=== PATIENT | male | born 1960 | race Caucasian/White ===

== ENCOUNTER 2018-07-06 08:41 | Emergency (ER) | payer OTHER, SELFPAY ==
[2018-07-06 08:49] VITALS: BP 166/100; PULSE 105; RESP 18; TEMP 36.8; O2SAT 99
--- NOTE | 2018-07-06 09:08 | ED_ITS ---
HPI - Wound/Laceration General Chief Complaint: Wound/Laceration Stated Complaint: r knee laceration Time Seen by Provider: 07/06/18 08:53 Source: patient Mode of arrival: ambulatory Limitations: no limitations History of Present Illness HPI narrative: patient is a 57-year-old male who presents with right knee laceration. He was at work when a piece of sheet metal slid off and grazed his knee. He was wearing jeans and cover also is he had quite a bit of blood loss according to witnesses. He does have a 1 cm laceration on his knee. He has no numbness or tingling. He is weight-bearing. He is able to flex and extend without any difficulty. Onset (ago): minute(s) Extremity Location: Right: knee ( 1 cm) Place: work Patient tetanus UTD: Yes Context: accidental Associated symptoms: none Review of Systems Review of Systems GENERAL: Denies chills,fever HEENT: Denies throat pain RESPIRATORY: Denies dyspnea, cough, wheezing CARDIOVASCULAR: Denies chest pain, palpitations GASTROINTESTINAL: Denies nausea, vomiting MUSCULOSKELETAL: Denies extremity pain, injury SKIN: 1 cm laceration NEUROLOGIC: Denies weakness, dizziness, headache, numbness 8 point review of systems is negative except for those stated above and HPI PFSH Medical History Patient denies significant medical history (Acute) Social History Smoking Status: Current every day smoker Social History Smoking Status: Current every day smoker Exam Initial Vital Signs Initial Vital Signs: Vital Signs Temperature 98.3 F 07/06/18 08:49 Pulse Rate 105 H 07/06/18 08:49 Respiratory Rate 18 07/06/18 08:49 Blood Pressure 166/100 H 07/06/18 08:49 Pulse Oximetry 99 07/06/18 08:49 GENERAL: Well-appearing, well-nourished and in no acute distress. CARDIOVASCULAR: peripheral pulses in tact, cap refill <2 sec RESPIRATORY: No respiratory distress, speaks in full sentences without difficulty EXTREMITIES: Normal range of motion, no clubbing or edema. Neurovascularly intact right knee able to flex and extend knee is stable. Neurovascularly intact. NEUROLOGICAL: Cranial nerves II through XII grossly intact. Normal gait and speech. SKIN: 1 cm laceration superior portion of the patella. No tendon identified. Bleeding controlled. Procedures Laceration Repair Laceration 1: Site: lower extremity Side (If applicable): right Size (cm): 1 Description: linear Depth: simple, single layer Local Anesthetic: with epi Amount of anesthesia used (mL): 3 Pre-repair: wound explored, irrigated extensively and deep structures intact Skin layer closed with: nylon Size (cm): 4-0 Number of sutures: 1 Technique: simple, interrupted Course Vital Signs - 8 hr 07/06/18 08:49 Temperature 98.3 F Pulse Rate 105 H Respiratory Rate 18 Blood Pressure 166/100 H Pulse Oximetry 99 Discharge Plan Departure Patient Disposition: Home Clinical Impression: Laceration of knee, right Qualifiers: Encounter type: initial encounter Qualified Code(s): S81.011A - Laceration wi thout foreign body, right knee, initial encounter Instructions: DI for Laceration Repair Activity Restrictions/Additional Instructions: 1. Have your suture removed in 5-7 days, you may go to walk-in clinic, return to the ER or call your primary care physician. - you may apply triple antibiotic ointment twice daily to help with infection in healing 2. No soaking in water including dishes, bathtubs, Lakes, swimming pools etc 3. Signs of infection include, but not limited to, increased redness, increased swelling, increased pain, fever and purulent drainage, if the symptoms should arise, you may need an antibiotic and you should have a reevaluation either by your primary care provider or by the emergency department. Referrals: [facility] [Provider Group]
[2018-07-06 09:15] VITALS: BP 154/87; PULSE 88; RESP 14; O2SAT 98
== END 2018-07-06 09:15 | disposition home or self-care (01) ==
PROVIDERS: Emergency Provider Emergency Medicine
DX: S81.011A Laceration without foreign body, right knee, initial encounter (principal); W26.8XXA Contact with other sharp object(s), not elsewhere classified, initial encounter; Y99.0 Civilian activity done for income or pay
CPT/HCPCS: 12001; 99283